=== PATIENT | male | born 1985 | race Caucasian/White ===

== ENCOUNTER 2017-03-24 12:16 | Emergency (ER) | payer OTHER ==
[2017-03-24 12:17] VITALS: BMI 24.3
[2017-03-24 12:21] VITALS: BP 156/98; PULSE 70; RESP 18; TEMP 98; O2SAT 99
--- NOTE | 2017-03-24 12:30 | ED PDOC ---
HPI: Psych/Substance Abuse Time Seen by Provider: 03/24/17 12:21 Chief Complaint (Nursing): Psychiatric Evaluation Chief Complaint (Provider): crisis eval History Per: Patient Additional Complaint(s): 31 year old male presents to ED for crisis eval. Patient was at court when he became upset regarding a case related to his 6 month old daughter. Real Estate Appraiser in the court house called ambulance for patient to come here for crisis eval. Patient admits to feeling anxious about current custody case that he is involved in for his daughter but he denies any suicidal or homicidal ideation at present. Patient denies any etoh or drug use. He state she is currently non -domiciled. Past Medical History Reviewed: Historical Data, Nursing Documentation, Vital Signs Vital Signs: Last Vital Signs Temp 98 F 03/24/17 12:18 Pulse 70 03/24/17 12:18 Resp 18 03/24/17 12:18 BP 156/98 H 03/24/17 12:18 Pulse Ox 99 03/24/17 12:18 - Medical History PMH: Back Problems, Kidney Stones - Surgical History Surgical History: Appendectomy Other surgeries: Right ACL repair, right femur repair - Family History Family History: States: No Known Family Hx - Living Arrangements Living Arrangements: With Family - Social History Current smoker - smoking cessation education provided: No Alcohol: None Drugs: Denies - Home Medications Home Medications: Ambulatory Orders Medication Instructions Recorded Acetaminophen/Hydrocodone Bi 1 tab PO Q6 PRN #12 tab 03/09/15 [Vicodin 300 mg-5 mg] Tamsulosin [Flomax] 0.4 mg PO DAILY #5 cap 03/09/15 - Allergies Allergies/Adverse Reactions: Allergies Allergy/AdvReac Type Severity Reaction Status Date / Time No Known Allergies Allergy Verified 03/24/17 12:44 Review of Systems ROS Statement: Except As Marked, All Systems Reviewed And Found Negative Cardiovascular: Negative for: Chest Pain Respiratory: Negative for: Cough Gastrointestinal: Negative for: Nausea, Vomiting Psych: Positive for: Anxiety, Depression. Negative for: Suicidal ideation Physical Exam - Reviewed Nursing Documentation Reviewed: Yes Vital Signs Reviewed: Yes - Physical Exam Appears: Positive for: Well, Non-toxic, No Acute Distress Skin: Negative for: Rash Eye Exam: Positive for: Normal appearance Cardiovascular/Chest: Positive for: Regular Rate, Rhythm Respiratory: Positive for: Normal Breath Sounds. Negative for: Respiratory Distress Extremity: Positive for: Normal ROM Neurologic/Psych: Positive for: Alert, Oriented - ECG O2 Sat by Pulse Oximetry: 99 Pulse Ox Interpretation: Normal Medical Decision Making Medical Decision Makin31 year old male here for crisis eval Plan: Crisis consult As per crisis counselor and Dr. Soria, psychiatrist concrete finisher apprentice, patient does not meet criteria for admission and is stable for discharge. Patient was provided with resources for outpatient follow up. Disposition - Clinical Impression Clinical Impression: Adjustment disorder - Patient ED Disposition Is Patient to be Admitted: No Counseled Patient/Family Regarding: Diagnosis, Need For Followup - Disposition Referrals: [facility] [Outside] Disposition: Routine/Home Disposition Time: 13:38 Condition: STABLE Additional Instructions: Follow up as directed. Instructions: Mood Disorders (ED)
== END 2017-03-24 13:57 | disposition home or self-care (01) ==
LOC: H.ER 12:16
DX: F43.20 Adjustment disorder, unspecified (principal)

== ENCOUNTER 2018-04-06 12:03 | Emergency (ER) | payer OTHER ==
[2018-04-06 12:17] VITALS: BP 125/84; PULSE 86; RESP 20; TEMP 97.8; O2SAT 97
[2018-04-06 12:18] VITALS: BMI 26.1
--- NOTE | 2018-04-06 13:22 | ED PDOC ---
HPI: Back Time Seen by Provider: 04/06/18 13:12 Chief Complaint (Nursing): Back Pain Chief Complaint (Provider): Back Pain History Per: Patient History/Exam Limitations: no limitations Onset/Duration Of Symptoms: Days (x 3) Current Symptoms Are (Timing): Still Present Additional Complaint(s): 32-year-old male presents to ED complaining of neck pain for 3 days. Pt is under pain management care. Pt states he takes oxycodone and naproxyn, but felt pain is not controlled. Did not take any medications today. Pt states had a fall 2 months ago. At that time, he was evaluated for back pain, not neck pain. Pt tried to make appointment today, but did not have appointment available. PMD: Norman Nogueira Past Medical History Reviewed: Historical Data, Nursing Documentation, Vital Signs Vital Signs: Last Vital Signs Temp 97.8 F 04/06/18 12:16 Pulse 86 04/06/18 12:16 Resp 20 04/06/18 12:16 BP 125/84 04/06/18 12:16 Pulse Ox 97 04/06/18 12:16 - Medical History PMH: Back Problems, Kidney Stones Denies: Atrial Fibrillation, Cardia Arrhythmia, CHF, Diabetes, Hepatitis, HIV , HTN, Hypercholesterolemia, Seizures, Sexually Transmitted Disease - Surgical History Surgical History: Appendectomy - Family History Family History: States: Unknown Family Hx - Immunization History Hx Tetanus Toxoid Vaccination: Yes Hx Influenza Vaccination: No Hx Pneumococcal Vaccination: No - Home Medications Home Medications: Ambulatory Orders Medication Instructions Recorded Acetaminophen/Hydrocodone Bi 1 tab PO Q6 PRN #12 tab 03/09/15 [Vicodin 300 mg-5 mg] Tamsulosin [Flomax] 0.4 mg PO DAILY #5 cap 03/09/15 - Allergies Allergies/Adverse Reactions: Allergies Allergy/AdvReac Type Severity Reaction Status Date / Time No Known Allergies Allergy Verified 03/24/17 12:44 Review of Systems ROS Statement: Except As Marked, All Systems Reviewed And Found Negative Musculoskeletal: Positive for: Neck Pain Physical Exam - Reviewed Nursing Documentation Reviewed: Yes Vital Signs Reviewed: Yes - Physical Exam Neck: Negative for: Normal ((+) Left lateral neck tenderness, (-) bony/spinal tenderness) - ECG O2 Sat by Pulse Oximetry: 97 (RA) Pulse Ox Interpretation: Normal Medical Decision Making Medical Decision Making: Time: 13:15 Plan; - Toradol 30 mg IM [facility] Search Done. Last prescribed on 04/05: Oxycodone. Quantity: 60 Last Refill on 03/26: Oxycodone. Quantity: 60 Upon provider evaluation patient is medically stable, and requires no further treatment in the ED at this time. Patient will be discharge. Counseling was provided and all questions were answered regarding diagnosis and need for follow up with pain management physician. There is agreement to discharge plan. Return if symptoms persist or worsen. Scribe Attestation: Documented by Bradly Easton, acting as a scribe for Phill Tran PA-C. Provider Scribe Attestation: All medical record entries made by the Scribe were at my direction and personally dictated by me. I have reviewed the chart and agree that the record accurately reflects my personal performance of the history, physical exam, medical decision making, and the department course for this patient. I have also personally directed, reviewed, and agree with the discharge instructions and disposition. Disposition - Clinical Impression Clinical Impression: Neck muscle strain - Patient ED Disposition Is Patient to be Admitted: No - Disposition Disposition: Routine/Home Disposition Time: 13:40 Condition: FAIR Additional Instructions: please continue with naproxen today evening as prescribed by your pain management physician. Instructions: Muscle Strain (DC) Forms: [employer] ([place])
== END 2018-04-06 13:40 | disposition home or self-care (01) ==
LOC: H.ER 12:03
DX: S16.1XXA Strain of muscle, fascia and tendon at neck level, initial encounter (principal); Z87.442 Personal history of urinary calculi
CPT/HCPCS: 96372; 99282; J1885

== ENCOUNTER 2018-09-19 17:09 | Emergency (ER) | payer OTHER ==
[2018-09-19 17:10] VITALS: BMI 26.1
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
[2018-09-19 20:38] VITALS: BP 134/88; PULSE 88; RESP 16; TEMP 98; O2SAT 99
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
== END 2018-09-19 20:34 | disposition home or self-care (01) ==
LOC: H.ER 17:09
DX: M54.5 Low back pain (principal); V43.62XA Car passenger injured in collision with other type car in traffic accident, initial encounter; Y92.410 Unspecified street and highway as the place of occurrence of the external cause
CPT/HCPCS: 72100; 96372; 99284; J1885